=== PATIENT | male | born 1945 | race Two or more races ===

== ENCOUNTER 2017-02-22 18:38 | Inpatient (IN) | payer BC ==
[~2017-02-22] VITALS: Ht 175.3 cm; Wt 63.5 kg
--- NOTE | 2017-02-22 18:45 | NUR ---
BIBRA FROM HOME C/O GENERALIZED WEAKNESS AND FREQUENTLY FALL X 3 DAYS. DENIES HEAD/NECK TRAUMA. DENIES K.O. SEEN BY MD FOR EVAL. SAFETY AND COMFORT MEASURES PROVIDED. WILL MONITOR.
[2017-02-22 19:07] LABS: BASOPHILS % (AUTO) 0.5 % (0.0-2.0); EOSINOPHILS # (AUTO) 0.1 /CMM (0.0-0.7); HEMATOCRIT 46 % (39-51); HEMOGLOBIN 15.5 g/dL (13.5-17.5); LYMPHOCYTES # (AUTO) 1.3 /CMM (0.8-4.8); LYMPHOCYTES % (AUTO) 16.9 % (20.0-44.0); MEAN CORPUSCULAR HEMOGLOBIN 31 PG (26.0-33.0); MEAN CORPUSCULAR HGB CONC 34 g/dl (31.0-36.0); MEAN CORPUSCULAR VOLUME 92 fL (80-96); MONOCYTES # (AUTO) 0.6 /CMM (0.1-1.30); MONOCYTES % (AUTO) 7.8 % (2.0-12.0); NEUTROPHILS # (AUTO) 5.6 /CMM (1.8-8.9); NEUTROPHILS % (AUTO) 72.8 % (43.0-81.0); PLATELET COUNT (AUTO) 274 /CMM (150-450); RDW COEFFICIENT OF VARIATION 13.4 (11.5-15.0); RED BLOOD CELL COUNT(AUTO) 5.06 MIL/uL (4.5-6.0); WHITE BLOOD COUNT (AUTO) 7.6 K/uL (4.3-11.0)
--- NOTE | 2017-02-22 19:10 | NUR ---
PT TAKEN TO CT SCAN.
[2017-02-22 19:28] LABS: INR 0.94 (0.87-1.13); PROTHROMBIN TIME 9.8 SECS (9.5-12.7)
[2017-02-22 19:29] LABS: ALANINE AMINOTRANSFERASE 35 U/L (12-78); ALBUMIN 3.8 g/dL (3.4-5.0); ALKALINE PHOSPHATASE 89 U/L (46-116); ASPARTATE AMINOTRANSFERASE 26 U/L (15-37); BILIRUBIN,DIRECT 0.1 mg/dL (0.0-0.2); BILIRUBIN,TOTAL 0.7 mg/dL (0.2-1.0); CALCIUM, SERUM 10.1 mg/dL (8.5-10.1); CARBON DIOXIDE 28 mmol/L (21-32); CHLORIDE 105 mmol/L (98-107); CREATININE 1.3 mg/dL (0.6-1.3); GLUCOSE 95 mg/dL (74-106); POTASSIUM 3.8 mmol/L (3.5-5.1); SODIUM SERUM 141 mmol/L (136-145); TOTAL PROTEIN, SERUM 7.8 g/dL (6.4-8.2); UREA NITROGEN, BLOOD 16 mg/dL (7-18)
--- NOTE | 2017-02-22 21:35 | NUR ---
REPORT GIVEN TO SANDI SILVER FOR TELE [phone].
--- NOTE | 2017-02-22 21:45 | NUR ---
LICENSED EMBALMER SUPERVISORAUTOMOBILE OR TRUCK RENTAL DISPATCHER NOTES RECEIVED FROM ER PER ALEJANDRINA,A/O X4,CHIEF COMPLAINTS OF WEAKNESS WITH FREQUENT FALLS QUALITY PROCESS AUDITOR.WITH MULTIPLE SKIN REDNESS ON BOTH UPPER AND LOWER EXTREMITIES.SLIGHT REDNESS ON COCCYX AREA AND SCROTUM,TREAT WITH SKIN BARRIER.SLIGHT SKIN ABRASION NOTED ON RIGHT FOREHEAD.WITH SLIGHT WEAKNESS ON LEFT HAND WHICH ON GOING FOR A YEAR.SALINE LOCK LEFT AC INTACT AND PATENT.INCONTINENT OF URINE.WILL CONTINUE TO MONITOR STATUS.
[2017-02-22 22:00] VITALS: BP 157/89
--- NOTE | 2017-02-22 22:15 | NUR ---
MEDICAL RECORD ADMINISTRATOR NOTES STARTED ON IVF D5 1/ NS 1 LITER, 100ML/HR RATE ORDERED
[2017-02-22] MEDS: IV D5/0.45 NACL 1,000 ML IV PRN (22:21)
--- NOTE | 2017-02-22 22:25 | NUR ---
FIELD INSTRUCTOR NOTES STARTED ON LIPITOR 40MG PO ORDERED.
[2017-02-22] MEDS ORDERED: ATORVASTATIN 40 MG TABLET ONE (22:34)
[2017-02-22] MEDS: ATORVASTATIN 40 MG TABLET PO SCH (22:35)
[2017-02-22] MEDS ORDERED: ZOLPIDEM TARTRATE 5 MG TABLET PO PRN (23:30)
[2017-02-22] MEDS ORDERED: ACETAMINOPHEN 325 MG TABLET PO PRN (23:30)
[2017-02-23] VITALS: BP 144/81
--- NOTE | 2017-02-23 01:00 | NUR ---
DIESEL BUS MECHANIC NOTES SLEEPING,KEPT WARM AND COMFORTABLE.
--- NOTE | 2017-02-23 04:08 | NUR ---
FURNACE ATTENDANT NOTES FOR MRI BRAIN WITHOUT CONTRAST THIS MORNING,CHECKLIST ON CHART
--- NOTE | 2017-02-23 04:30 | NUR ---
AIR VICE MARSHAL NOTES REPORTED BY DEEDEE HERNANDEZ,BLOOD PRESSURE ON THE HIGH SIDE 199/96 ON LEFT ARM,182/103 0N RIGHT ARM,CLAIMED PAIN ON BACK OF THE NECK BUT TOLERABLE.
--- NOTE | 2017-02-23 04:36 | NUR ---
DROSS SKIMMER NOTES DR YOUNG WAS PAGE AWAITING TO CALL BACK.
[2017-02-23] MEDS ORDERED: ASPIRIN 325 MG TABLET ONE (04:49)
[2017-02-23] MEDS: ASPIRIN 325 MG TABLET PO SCH (04:50)
--- NOTE | 2017-02-23 04:50 | NUR ---
RN UNIT MANAGER NOTES STARTED ON ASPIRIN 325MG PO,GIVEN EARLY FOR 0900 DOSE.
--- NOTE | 2017-02-23 04:56 | NUR ---
CHERRY DIPPER NOTES DR YOUNG WAS PAGE AGAIN FOR ORDERS
--- NOTE | 2017-02-23 05:00 | NUR ---
HISTOLOGY TECH NOTES DR YOUNG CALLED BACK WITH NEW ORDERS NOTED AND CARRIED OUT.
[2017-02-23] MEDS ORDERED: AMLODIPINE BESYLATE 10 MG TABLET ONE (05:11)
[2017-02-23] MEDS: AMLODIPINE BESYLATE 10 MG TABLET PO SCH (05:14)
--- NOTE | 2017-02-23 05:14 | NUR ---
COMPLIANCE SPEC NOTES STARTED ON NORVASC 10MG PO FOR BP 199/96,HEART RATE 91 ON TELE MONITOR.
[2017-02-23] MEDS ORDERED: CLONIDINE HCL 0.1 MG TABLET PO PRN (05:30)
--- NOTE | 2017-02-23 06:45 | NUR ---
SURVEYOR'S ASSISTANT NOTES LATEST BP AFTER NORVASC 175/89,HR-88.MEDICATED WITH CLONIDINE 0.1MG PO ORDERED FOR SBP ABOVE 160.
[2017-02-23] MEDS ORDERED: CLONIDINE HCL 0.1 MG TABLET ONE (06:55)
[2017-02-23 07:04] LABS: BASOPHILS % (AUTO) 0.5 % (0.0-2.0); EOSINOPHILS # (AUTO) 0.2 /CMM (0.0-0.7); EOSINOPHILS % (AUTO) 2.6 % (0.0-6.0); HEMATOCRIT 46 % (39-51); HEMOGLOBIN 15.4 g/dL (13.5-17.5); LYMPHOCYTES % (AUTO) 20.9 % (20.0-44.0); MEAN CORPUSCULAR HEMOGLOBIN 31 PG (26.0-33.0); MEAN CORPUSCULAR HGB CONC 34 g/dl (31.0-36.0); MEAN CORPUSCULAR VOLUME 92 fL (80-96); MONOCYTES # (AUTO) 0.8 /CMM (0.1-1.30); MONOCYTES % (AUTO) 8.1 % (2.0-12.0); NEUTROPHILS # (AUTO) 6.5 /CMM (1.8-8.9); NEUTROPHILS % (AUTO) 67.9 % (43.0-81.0); PLATELET COUNT (AUTO) 283 /CMM (150-450); RDW COEFFICIENT OF VARIATION 13.7 (11.5-15.0); RED BLOOD CELL COUNT(AUTO) 5.01 MIL/uL (4.5-6.0); WHITE BLOOD COUNT (AUTO) 9.5 K/uL (4.3-11.0)
--- NOTE | 2017-02-23 07:07 | NUR ---
GANG SAWYER NOTES. DENIES PAIN,WILL HOLD BREAKFAST UNTIL SEEN BY DR GUZMAN.VERBALIZED NEEDS,DVT PUMP FOR PROPHYLAXIS.IN NO ACUTE DISTRESS.WILL ENDORSE TO DAY NURSE FOR BERNARDA.
--- NOTE | 2017-02-23 07:25 | NUR ---
DRUM BARKER OPERATOR OPENING NOTES PATIENT UP IN BED, ALERT AND ORIENTED X 4, NO SOB NOTED, BREATHING EVEN AND UNLABORED, NO C/O PAIN AT THIS TIME, NO SIGNS AND SYMPTOMS OF ACUTE DISTRESS. PATIENT WITH SR = 83. PLACED CALL LIGHT WIHTIN EASY REACH. KEPT PT SAFE AND DRY, CLEAN AND COMFORTABLE.
[2017-02-23 07:31] LABS: CALCIUM, SERUM 9.5 mg/dL (8.5-10.1); CARBON DIOXIDE 28 mmol/L (21-32); CHLORIDE 102 mmol/L (98-107); CREATININE 1.2 mg/dL (0.6-1.3); GLUCOSE 100 mg/dL (74-106); POTASSIUM 3.5 mmol/L (3.5-5.1); SODIUM SERUM 141 mmol/L (136-145); UREA NITROGEN, BLOOD 15 mg/dL (7-18)
[2017-02-23 07:36] LABS: CHOLESTEROL 248 mg/dL (<200); HDL CHOLESTEROL 68 mg/dL (40-60); LDL 150 mg/dL (0-99); TRIGLYCERIDES 82 mg/dL (30-150)
[2017-02-23 08:00] VITALS: BP 164/97
[2017-02-23] MEDS ORDERED: AMLO10TA2 PO (08:38)
[2017-02-23] MEDS ORDERED: ATOR40TA PO (08:38)
[2017-02-23] MEDS ORDERED: LISI20TA61 PO (08:38)
[2017-02-23] MEDS ORDERED: ASPI325T2 PO (08:38)
--- NOTE | 2017-02-23 08:50 | NUR ---
MD VISIT PATIENT SEEN AND EXAMINED BY DR. YOUNG, PLAN OF CARE DISCUSSED WITH PATIENT. RECEIVED NEW ORDERS FROM MD FOR NEW MEDICATION, DIAGNOSTIC TESTING, PT/OT EVAL AND POSSIBLE DISCHARGE TO SNF. PATIENT UNDERSTANDS PLAN OF CARE AND AGREES. ALL PATIENT'S NEEDS ATTENDED TO. WILL CONTINUE TO MONITOR.
[2017-02-23] MEDS: LISINOPRIL (20MG) 20 MG TABLET PO SCH (11:01)
[2017-02-23] MEDS: ENOXAPARIN SODIUM 40 MG/0.4 ML DISP.SYRIN SQ SCH (11:03)
--- NOTE | 2017-02-23 11:30 | NUR ---
CLIENT CARE COORDINATOR NOTES RECEIVED MRI RESULTS, DR. YOUNG INFORMED, DR. CORDOBA AT PT'S BEDSIDE INFORMED.
[2017-02-23 12:00] VITALS: BP 157/88
--- NOTE | 2017-02-23 14:00 | NUR ---
PLANT MAINTENANCE MECHANIC NOTES PT PROVIDED WITH STROKE EDUCATION, PARTICIPATED ACTIVELY IN THE DISCUSSION, VERBALIZED UNDERSTANDING, STROKE PACKED PROVIDED, PT STATED THAT HE WILL START READING IT.
[2017-02-23 16:00] VITALS: BP 143/87
--- NOTE | 2017-02-23 18:45 | NUR ---
DIRECTOR LIFE SCIENCES CLOSING NOTES PATIENT UP IN BED, ASLEEP BUT EASILY AROUSABLE, C/O PAIN AT THIS TIME, NO SIGNS OF ACUTE DISTRESS, NO SOB, BREATHING EVEN AND UNLABORED. PT UNDER TELE UNIT WITH SR=92, NO C/O CHEST PAIN AND DENIES DIZZINESS. ALL PATIENT'S NEEDS ATTENDED TO. PLACED CALL LIGHT WITHIN EASY REACH.
--- NOTE | 2017-02-23 19:40 | NUR ---
MS RN Initial notes Received pt in bed awake,alert,verbally responsive on room air, no SOB,no apparent distress noted. Denies any pain or discomfort at this time. IV site Lt AC intact, patent no s/sx of infiltration noted. Kept clean and comfortable,call light within reach. Will continue to monitor accordingly.
[2017-02-23 20:00] VITALS: BP 144/73
[2017-02-23] MEDS: IV D5/0.45 NACL 1,000 ML IV PRN (20:07)
[2017-02-23] MEDS: ATORVASTATIN 40 MG TABLET PO SCH (21:12)
[2017-02-24] VITALS: BP 146/72
[2017-02-24 04:00] VITALS: BP 154/90
[2017-02-24] MEDS: IV D5/0.45 NACL 1,000 ML IV PRN (05:59)
--- NOTE | 2017-02-24 06:36 | NUR ---
MS RN Notes Pt in bed, asleep,on room air, no SOB,no apparent distress noted. Respirations even unlabored. Denies any pain or discomfort at this time. IV site intact, patent,no s/sx of infiltration noted. Kept clean and comfortable, attended all needs. Call light within reach. Will continue to monitor accordingly.
--- NOTE | 2017-02-24 08:00 | NUR ---
LOGISTICS SOLUTION MANAGER NOTES MS RN Notes Patient in bed, alert and oriented. HOB elevated, bed in low position. No SOB, no apparent distress noted. Denies any pain or discomfort at this time. IV site intact, patent, no s/sx of infiltration noted. Kept clean and comfortable, needs attended. Call light within easy reach. Will continue to monitor
[2017-02-24] MEDS: ASPIRIN 325 MG TABLET PO SCH (09:54)
[2017-02-24] MEDS: LISINOPRIL (20MG) 20 MG TABLET PO SCH (09:54)
[2017-02-24 09:55] VITALS: BP 158/83
[2017-02-24] MEDS: AMLODIPINE BESYLATE 10 MG TABLET PO SCH (09:55)
[2017-02-24] MEDS: ENOXAPARIN SODIUM 40 MG/0.4 ML DISP.SYRIN SQ SCH (09:57)
--- NOTE | 2017-02-24 16:00 | NUR ---
ENRIQUE CALLED REPORTING PT IS POSITIVE OF MRSA NARES.NOTIFIED DR YOUNG WITH ORDERS OF BACTROBAN LATONIA APPLIED TO NARES BID FOR 5 DAYS.WILL REPORT TO ALON FALCON RN.TRIED CALLING ALONEron FALCON AND THEY STATED THAT THE RN TILLER MAN IS STILL BUSY AT THIS TIME AND WILL GET REPORT LATER.
--- NOTE | 2017-02-24 18:00 | NUR ---
DISCHARGE NOTES Patient discharged in stable condition picked up by [facility] ambulance in a gurney accompanied by 2 EMT personnel. All belongings accounted for. Discharge instructions given, verbalized understanding. Discharge packet for SNF was given to the EMT personnel. Report given to Tiago Villegas.
== END 2017-02-24 18:00 | DRG 65 ==
LOC: ER 18:41 → TELE 21:35 → MED 02-24 07:57
PROVIDERS: ADMIT Internal Medicine; ATTEND Internal Medicine
DX: I63.9 Cerebral infarction, unspecified (principal); G81.94 Hemiplegia, unspecified affecting left nondominant side; I10 Essential (primary) hypertension; F17.200 Nicotine dependence, unspecified, uncomplicated; Z79.899 Other long term (current) drug therapy; F14.90 Cocaine use, unspecified, uncomplicated; F12.90 Cannabis use, unspecified, uncomplicated; Z79.82 Long term (current) use of aspirin; Z82.49 Family history of ischemic heart disease and other diseases of the circulatory system; Z82.3 Family history of stroke; E78.5 Hyperlipidemia, unspecified; I70.0 Atherosclerosis of aorta
CPT/HCPCS: 36415; 70450-TC; 70551-TC; 71010-TC; 72125-TC; 80048-TC; 80061-TC; 80076-TC; 83605-TC; 84443-TC; 84484-TC; 85025-TC; 85730-TC; 87040-TC; 87081-TC; 92611-TC; 93307-TC; 93880-TC; 97110-TC; 97116-TC; 97530-TC; A4606; J1650; J3490; Z7610